=== PATIENT | male | born 1965 | race Caucasian/White ===

== ENCOUNTER 2016-12-21 15:47 | Inpatient (IN) | payer OTHER ==
[2016-12-21 17:11] VITALS: BMI 28.2
--- NOTE | 2016-12-21 18:36 | HP ---
Admission ROS [facility] - [facility] Chief Complaint: I WANT TO GO TO REHAB PATIENT REPORTS COMPLETED DETOX TODAY FROM [facility]" "WHOLE PACKAGE WAS FAXED TO [facility], NEGATIVE CHEST XRAY REPORT INCLUDED LEAD RUBY ON RAILS DEVELOPER UNABLE TO LOCATED "PACKAGE" Allergies/Adverse Reactions: Allergies Allergy/AdvReac Type Severity Reaction Status Date / Time No Known Allergies Allergy Verified 12/21/16 17:10 History of Present Illness: 51 YEARS OLD MALE WITH LONG HISTORY OF ALCOHOL COCAINE DEPENDENCE, DENIES MEDICAL DENIES MENTAL ILLNESS IS ADMITTED TO REHAB Exam Limitations: No Limitations - Ebola screening Have you traveled outside of the country in the last 21 days: No Have you had contact with anyone from an Ebola affected area: No Have you been sick,other than usual withdrawal symptoms: No Do you have a fever: No - Review of Systems Constitutional: Weight Stable EENT: reports: No Symptoms Reported Respiratory: reports: No Symptoms reported Cardiac: reports: No Symptoms Reported GI: reports: No Symptoms Reported : reports: No Symptoms Reported Musculoskeletal: reports: No Symptoms Reported Integumentary: reports: No Symptoms Reported Neuro: reports: No Symptoms reported Endocrine: reports: No Symptoms Reported Hematology: reports: No Symptoms Reported Psychiatric: reports: Judgement Intact, Mood/Affect Appropiate, Orientated x3 Other Systems: Reviewed and Negative Patient History - Patient Medical History Hx Anemia: No Hx Asthma: No Hx Chronic Obstructive Pulmonary Disease (COPD): No Hx Cancer: No Hx Cardiac Disorders: No Hx Congestive Heart Failure: No Hx Hypertension: No Hx Hypercholesterolemia: No (BY HISTORY) Hx Pacemaker: No HX Cerebrovascular Accident: No Hx Seizures: No Hx Dementia: No Hx Diabetes: No Hx Gastrointestinal Disorders: No Hx Liver Disease: No Hx Genitourinary Disorders: No Hx Sexually Transmitted Disorders: No Hx Renal Disease (ESRD): No Hx Thyroid Disease: No Hx Human Immunodeficiency Virus (HIV): No Hx Hepatitis C: No Hx Depression: No Hx Suicide Attempt: No Hx Bipolar Disorder: No Hx Schizophrenia: No - Patient Surgical History Past Surgical History: Yes Hx Neurologic Surgery: No Hx Cataract Extraction: No Hx Cardiac Surgery: No Hx Lung Surgery: No Hx Breast Surgery: No Hx Breast Biopsy: No Hx Abdominal Surgery: No Hx Appendectomy: No Hx Cholecystectomy: No Hx Genitourinary Surgery: No Hx Orthopedic Surgery: No Other Surgical History: 2008 right groin hernia Anesthesia Reaction: No (1978 tonsilectomy) - PPD History Previous Implant?: Yes Documented Results: Negative w/o proof Implanted On Prior R Admission?: No Date: 11/20/16 Results: CHEST X RAY NEG PPD to be Administered?: No - Smoking Cessation Smoking history: Never smoked Have you smoked in the past 12 months: No Aproximately how many cigarettes per day: 0 Hx Chewing Tobacco Use: No Initiated information on smoking cessation: No - Substance & Tx. History Hx Alcohol Use: Yes Hx Substance Use: Yes Substance Use Type: Alcohol, Cocaine Hx Substance Use Treatment: Yes - Substances Abused Alcohol Route: Oral Frequency: 3-6 times per week Amount used: / P[place] Age of first use: 14 Date of Last Use: 12/15/16 Cocaine Route: Smoking Frequency: Daily Amount used: 50$ Age of first use: 26 Date of Last Use: 12/15/16 Family Disease History - Family Disease History Family Disease History: Other: Mother (JOSÉ MIGUEL ) Admission Physical Exam [facility] - Vital Signs Vital Signs: Vital Signs - 24 hr 12/21/16 17:09 Temperature 98.2 F Pulse Rate 67 Respiratory 20 Rate Blood Pressure 136/97 - Physical General Appearance: Yes: No Apparent Distress, Nourished, Appropriately Dressed HEENTM: Yes: Hearing grossly Normal, Normal ENT Inspection, Normocephalic, Normal Voice Respiratory: Yes: Chest Non-Tender, Lungs Clear, Normal Breath Sounds, No Respiratory Distress, No Accessory Muscle Use Neck: Yes: Supple, Trachea in good position Breast: Yes: Breasts Symetrical Cardiology: Yes: Regular Rhythm, Regular Rate, S1, S2 Abdominal: Yes: Normal Bowel Sounds, Non Tender, Soft Genitourinary: Yes: Within Normal Limits Back: Yes: Within Normal Limits, Normal Inspection Musculoskeletal: Yes: full range of Motion, Gait Steady Extremities: Yes: Normal Inspection, Normal Range of Motion, Non-Tender Neurological: Yes: Fully Oriented, Alert, Motor Strength 5/5, Normal Mood/Affect , Normal Response Integumentary: Yes: Warm Lymphatic: Yes: Within Normal Limits - Diagnostic (1) Alcohol dependence with uncomplicated withdrawal Current Visit: Yes Status: Acute (2) Cocaine dependence, uncomplicated Current Visit: Yes Status: Chronic Cleared for Admission [facility] - Detox or Rehab [facility] Level of Care: Observation Bed Detox Regimen/Protocol: Not Applicable Claeared for Rehab Admission: Yes [facility] Breath Alcohol Content Breath Alcohol Content: 0 Urine Drug Screen - Results Drug Screen Negative: No Urine Drug Screen Results: BZO-Benzodiazepines
[2016-12-21] MEDS ORDERED: P-EPHED 60MG/TRIPROLIDI 2.5MG TABLET PO PRN (18:44)
[2016-12-21] MEDS ORDERED: guaiFENesin/D-METHORPHAN HB 10 ML UNIT-DOSE CUPS PO PRN (18:44)
[2016-12-21] MEDS ORDERED: hydrOXYzine PAMOATE 50 MG CAPSULE (FP) PO PRN (18:44)
[2016-12-21] MEDS ORDERED: LOPERAMIDE HCL 2 MG CAPSULE PO PRN (18:44)
[2016-12-21] MEDS ORDERED: MAGNESIUM HYDROX 2400MG/30ML ORAL SUSPENSION 30 ML CUP PO PRN (18:44)
[2016-12-21] MEDS ORDERED: MAG HYDROX/AL HYDROX/SIMETH 30 ML UNIT-DOSE CUP PO PRN (18:44)
[2016-12-21] MEDS ORDERED: MAGNESIUM CITRATE 300 ML BOTTLE PO PRN (18:44)
[2016-12-21] MEDS ORDERED: MENTHOL/PHENOL 1 EACH UD MM PRN (18:44)
[2016-12-21] MEDS: THIAMINE HCL 100 MG TABLET (FP) PO SCH (23:28)
--- NOTE | 2016-12-22 06:41 | HP ---
Psychiatrist Admission - Data Date of interview: 12/22/16 Admission source: [facility] Identifying data: This is the second [facility] admission for this 51 years old male Medical History: Significant for Hyperlipidemia, herniated disc from work injury , alcohol-related seizure and surgery for right inguinal hernia repair Psychiatric History: Patient was a realiable historian, however he could not recall date of his psychiatric contacts. Reports that his first psychiaric contact was in an outpatient substance abuse program sometimes in . He said that that psychiatrist diagnosed him with Bipolar Disorder and prescribed him medication. Claims that he did not take that medication. Later on he saw an outpatient psychiatrist who diagnosed him with Bipolar Disorder and prescribed him Depakote and Seroquel. Reports that he saw that psychiatrist little over a year. He denied at first ever been in a psychiatric hospital.However, when confronted with information he provided in a previous admission to rehab in this facility in 2016, he admitted to one short psychiatric admission to [facility]. He said that he went there for the purpose of being admitted to inpt detox, but when he was told there was no bed available, he lied his way to the [facility]. Reports not currently involved in treatment as well as taking medication. He said that he has stopped taking medications a year ago but was prescribed Seroquel for sleep at [facility] where he just completed inpt detox yesterday. He does not want to take medications, not even Seroquel during his stay here. Denies history of previous suicidal attempt Physical/Sexual Abuse/Trauma History: Patient denies history of sexual, physical and verbal abuse. Served 2.5 yeras in and discharged [facility] Additional Comment: Reports history of 5 misdemeanor arrests. Denies being on probation at present Vital Signs: Vital Signs - 24 hr 12/21/16 12/22/16 12/22/16 17:09 00:30 03:30 Temperature 98.2 F Pulse Rate 67 Respiratory 20 20 20 Rate Blood Pressure 136/97 12/22/16 06:36 Temperature 96.3 F L Pulse Rate 52 L Respiratory 16 Rate Blood Pressure 130/87 Allergies/Adverse Reactions: Allergies Allergy/AdvReac Type Severity Reaction Status Date / Time No Known Allergies Allergy Verified 12/21/16 17:10 Date of last physical exam: 12/21/16 Concur with the findings of this exam: Yes - Substance Abuse/Tx History Hx Alcohol Use: Yes Hx Substance Use: Yes Substance Use Type: Alcohol (Started drinking alcohol at age 14, consumes half a pint 3-6 times weekly. Last drink on 12/15/16), Cocaine (Started smoking crack cocaine at age 26, consumes $50 worth daily. Last smoked on 12/15/16) Hx Substance Use Treatment: Yes (multiple inpt detox & 2 inpt rehab) - Admission Criteria Previous failed treatment: No Poor recovery environment: Yes Comorbidities: Yes Lacks judgement: Yes Mental Status Exam - Mental Status Exam Alert and Oriented to: Time, Place, Person Cognitive Function: Fair Patient Appearance: Well Groomed Mood: Depressed Affect: Appropriate Patient Behavior: Cooperative Speech Pattern: Clear, Pressured (mildly) Voice Loudness: Normal Thought Process: Intact Thought Disorder: Not Present Hallucinations: Denies Suicidal Ideation: Denies Homicidal Ideation: Denies Insight/Judgement: Fair Sleep: Poorly Appetite: Good Muscle strength/Tone: Normal Gait/Station: Normal Psychiatric Findings - Problem List ([place] 1, 2,3) (1) Alcohol dependence with uncomplicated withdrawal Current Visit: Yes Status: Acute (2) Cocaine dependence, uncomplicated Current Visit: Yes Status: Chronic (3) Bipolar disorder Current Visit: Yes Status: Acute (4) Hyperlipidemia Current Visit: No Status: Chronic Qualifiers: Hyperlipidemia type: Pure hypercholesterolemia Comment: lipitor 20 mg - Initial Treatment Plan Initial Treatment Plan: Monitor progress
[2016-12-22] MEDS: PRENATAL VITAMINS W/ FOLIC ACID TABLET (FP) PO SCH (09:50)
[2016-12-22 10:58] LABS: ALBUMIN 3.8 g/dl (3.4-5.0); ALK PHOS 80 U/L (45-117); ANION GAP 8 (8-16); BILIRUBIN,TOTAL 0.5 mg/dL (0.2-1.0); CALCIUM 9.4 mg/dL (8.5-10.1); CO2 32 mmol/L (21-32); COCKROFT - GAULT 107.21; CREATININE 1.1 mg/dL (0.7-1.3); GLUCOSE,RANDOM 98 mg/dL (74-106); TOT PROT 7.5 g/dl (6.4-8.2)
[2016-12-22 10:59] LABS: MCH 30.2 pg (25.7-33.7); MCHC 34.3 g/dl (32.0-35.9); MEAN CELL VOLUME 87.9 fl (80-96); MEAN PLT VOLUME 7.8 fl (7.5-11.1); PLATELET COUNT 283 K/MM3 (134-434); WHITE BLOOD COUNT 6.4 K/mm3 (4.0-10.0)
[2016-12-22 11:47] LABS: URINE APPEARANCE CLEAR; URINE BILIRUBIN NEGATIVE (NEGATIVE); URINE BLOOD NEGATIVE (NEGATIVE); URINE COLOR LTYELLOW; URINE GLUCOSE (UA) NEGATIVE (NEGATIVE); URINE KETONE NEGATIVE (NEGATIVE); URINE LEUK ESTERASE NEGATIVE (NEGATIVE); URINE NITRITE NEGATIVE (NEGATIVE); URINE PROTEIN NEGATIVE (NEGATIVE); URINE UROBILINOGEN NEGATIVE E.U./dl (0.2-1.0)
[2016-12-22 12:07] LABS: HIV 1 & 2 AB NEGATIVE; HIV 1 AGp24 NEGATIVE
[2016-12-22] MEDS ORDERED: COLLOIDAL OATMEAL 1 BAR EACH TP PRN (12:48)
--- NOTE | 2016-12-22 13:11 | EKG ---
Test Reason : Blood Pressure : / mmHG Vent. Rate : 065 BPM Atrial Rate : 065 BPM P-R Int : 170 ms QRS Dur : 084 ms QT Int : 408 ms P-R-T Axes : 048 015 033 degrees QTc Int : 424 ms NORMAL SINUS RHYTHM NORMAL ECG NO PREVIOUS ECGS AVAILABLE Confirmed by TIERRA BILLINGSLEY, ADOLFO ([id number]) on 12/22/2016 1:11:20 PM Referred By: Matt Pulido Confirmed By:ADOLFO MAYORGA MD
[2016-12-22 18:14] LABS: SGPT/ALT 31 U/L (12-78)
[2016-12-22 18:15] LABS: SGOT/AST 22 U/L (15-37)
[2016-12-22] MEDS: IBUPROFEN 400 MG TABLET (FP) PO PRN (20:25)
[2016-12-22] MEDS: diphenhydrAMINE HCL 50 MG CAPSULE PO PRN (21:07)
[2016-12-22] MEDS: THIAMINE HCL 100 MG TABLET (FP) PO SCH (21:07)
[2016-12-22] MEDS: CLOTRIMAZOLE 1%TOPICAL SOLUTION 30 ML BOTTLE TP SCH (21:08)
[2016-12-22] MEDS ORDERED: PT OWN MED DRAWER 7, Y5N ONE (21:09)
[2016-12-23] MEDS ORDERED: PT OWN MED DRAWER 7, Y5N ONE ×3 (08:36→21:38)
[2016-12-23] MEDS: PRENATAL VITAMINS W/ FOLIC ACID TABLET (FP) PO SCH (09:43)
[2016-12-23] MEDS: CLOTRIMAZOLE 1%TOPICAL SOLUTION 30 ML BOTTLE TP SCH ×2 (09:45→21:38)
[2016-12-23] MEDS: ACETAMINOPHEN 325 MG TABLET (FP) PO PRN (18:00)
[2016-12-23] MEDS: diphenhydrAMINE HCL 50 MG CAPSULE PO PRN (21:37)
[2016-12-23] MEDS: IBUPROFEN 400 MG TABLET (FP) PO PRN (21:37)
[2016-12-23] MEDS: THIAMINE HCL 100 MG TABLET (FP) PO SCH (21:38)
[2016-12-24] MEDS: PRENATAL VITAMINS W/ FOLIC ACID TABLET (FP) PO SCH (09:46)
[2016-12-24] MEDS: CLOTRIMAZOLE 1%TOPICAL SOLUTION 30 ML BOTTLE TP SCH ×2 (09:46→21:12)
[2016-12-24] MEDS: ACETAMINOPHEN 325 MG TABLET (FP) PO PRN (11:52)
[2016-12-24] MEDS: diphenhydrAMINE HCL 50 MG CAPSULE PO PRN (21:11)
[2016-12-24] MEDS: IBUPROFEN 400 MG TABLET (FP) PO PRN (21:11)
[2016-12-24] MEDS: THIAMINE HCL 100 MG TABLET (FP) PO SCH (21:11)
[2016-12-25] MEDS ORDERED: PT OWN MED DRAWER 7, Y5N ONE ×2 (08:27→21:35)
[2016-12-25] MEDS: CLOTRIMAZOLE 1%TOPICAL SOLUTION 30 ML BOTTLE TP SCH ×2 (09:44→21:26)
[2016-12-25] MEDS: PRENATAL VITAMINS W/ FOLIC ACID TABLET (FP) PO SCH (09:44)
[2016-12-25] MEDS: THIAMINE HCL 100 MG TABLET (FP) PO SCH (21:36)
[2016-12-25] MEDS: diphenhydrAMINE HCL 50 MG CAPSULE PO PRN (21:36)
[2016-12-26] MEDS ORDERED: PT OWN MED DRAWER 7, Y5N ONE ×3 (08:23→21:22)
[2016-12-26] MEDS: PRENATAL VITAMINS W/ FOLIC ACID TABLET (FP) PO SCH (09:26)
[2016-12-26] MEDS: CLOTRIMAZOLE 1%TOPICAL SOLUTION 30 ML BOTTLE TP SCH ×2 (09:26→21:22)
[2016-12-26] MEDS: diphenhydrAMINE HCL 50 MG CAPSULE PO PRN (21:20)
[2016-12-26] MEDS: THIAMINE HCL 100 MG TABLET (FP) PO SCH (21:20)
[2016-12-26] MEDS: IBUPROFEN 400 MG TABLET (FP) PO PRN (21:21)
[2016-12-27] MEDS: CLOTRIMAZOLE 1%TOPICAL SOLUTION 30 ML BOTTLE TP SCH ×2 (09:45→21:10)
[2016-12-27] MEDS: PRENATAL VITAMINS W/ FOLIC ACID TABLET (FP) PO SCH (09:45)
--- NOTE | 2016-12-27 14:47 | PN ---
Psychiatric Progress Note Vital Signs: Vital Signs Period Temp Pulse Resp BP Sys/Palmer Pulse Ox Last 24 Hr 97.5 F 57 16-18 124/78 Date of Session: 12/27/16 Chief Complaint:: Discharge Note HPI: Patient addressing Alcohol and Cocaine Dependence comorbid with Bipolar Disorder ROS: Hyperlipidemia and Herniated disc Current Medications: Active Medications Generic Name Dose Route Start Last Admin Trade Name Freq PRN Reason Stop Dose Admin Acetaminophen 650 mg 12/21/16 18:44 12/24/16 11:52 Tylenol - PO 650 mg Q4H PRN Administration PAIN Al Hydroxide/Mg Hydroxide 30 ml 12/21/16 18:44 Mylanta Oral Suspension - PO Q6H PRN DYSPEPSIA Clotrimazole 1 applic 12/22/16 22:00 12/27/16 09:45 Lotrimin 1% Solution - TP Not Given BID BRI Colloidal Oatmeal 1 applic 12/22/16 12:48 12/22/16 17:23 Aveeno Soap - TP 1 applic DAILY PRN Administration HYGEINE Diphenhydramine HCl 50 mg 12/21/16 18:44 12/26/16 21:20 Benadryl - PO 50 mg HSMR1 PRN Administration INSOMNIA Eucalyptus/Menthol/Phenol/Sorbitol 1 each 12/21/16 18:44 Cepastat Lozenge - MM Q4H PRN SORE THROAT Guaifenesin 10 ml 12/21/16 18:44 Robitussin Dm - PO Q6H PRN COUGH Hydroxyzine Pamoate 50 mg 12/21/16 18:44 Vistaril - PO Q4H PRN AGITATION Ibuprofen 400 mg 12/21/16 18:44 12/26/16 21:21 Motrin - PO 400 mg Q6H PRN Administration SEVERE PAIN Loperamide HCl 4 mg 12/21/16 18:44 Imodium - PO Q6H PRN DIARRHEA Magnesium Citrate 300 ml 12/21/16 18:44 Citroma - PO Q48H PRN CONSTIPATION Magnesium Hydroxide 30 ml 12/21/16 18:44 Milk Of Magnesia - PO DAILY PRN CONSTIPATION Multivit/Folic Acid/Iron 1 tab 12/22/16 10:00 12/27/16 09:45 Vitamins (Sjr) - PO 1 tab DAILY BRI Administration Pseudoephedrine/Triprolidine 1 combo 12/21/16 18:44 Actifed - PO TID PRN NASAL CONGESTION Thiamine HCl 100 mg 12/21/16 22:00 12/26/16 21:20 Vitamin B1 - PO 100 mg HS BRI Administration Current Side Effect: No Lab tests ordered: Yes Lab tests reviewed: Yes Provider note:: Patient will complete this program on 12/28/16. He has parially met his treatment goals and will contniue to address his issues in outpatient treatment at [facility]. 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 He is stable for discharge on 12/28/16 Total face to face time:: 35 Mental Status Exam - Mental Status Exam Alert and Oriented to: Time, Place, Person Cognitive Function: Fair Patient Appearance: Well Groomed Mood: Hopeful, Euthymic Affect: Appropriate Patient Behavior: Cooperative Speech Pattern: Clear Voice Loudness: Normal Thought Process: Intact Thought Disorder: Not Present Hallucinations: Denies Suicidal Ideation: Denies Homicidal Ideation: Denies Insight/Judgement: Fair Sleep: Fair Appetite: Good Muscle strength/Tone: Normal Gait/Station: Normal Psychiatric Treatment Plan - Problem List (1) Alcohol dependence with uncomplicated withdrawal Current Visit: Yes (2) Cocaine dependence, uncomplicated Current Visit: Yes (3) Bipolar disorder Current Visit: Yes (4) Hyperlipidemia Current Visit: No Qualifiers: Hyperlipidemia type: Pure hypercholesterolemia Comment: lipitor 20 mg Initial treatment plan: Patient will be discharged tomorrow and referred to [facility] for outpatient treatment
[2016-12-27] MEDS: diphenhydrAMINE HCL 50 MG CAPSULE PO PRN (21:09)
[2016-12-27] MEDS: THIAMINE HCL 100 MG TABLET (FP) PO SCH (21:09)
[2016-12-28 06:31] VITALS: BP 130/92; PULSE 58; TEMP 97.4
[2016-12-28] MEDS ORDERED: PT OWN MED DRAWER 7, Y5N ONE (08:31)
== END 2016-12-28 08:30 | disposition home or self-care (01) | DRG 772 ==
LOC: YASAS 15:47 → Y3W 18:29
PROVIDERS: ADMIT Psychiatry & Neurology Psychiatry; ATTEND Psychiatry & Neurology Psychiatry
PROC: HZ42ZZZ Group Counseling for Substance Abuse Treatment, Cognitive-Behavioral (ICD-10-PCS; principal; 2016-12-28)
DX: F10.230 Alcohol dependence with withdrawal, uncomplicated (principal); F14.20 Cocaine dependence, uncomplicated; F31.9 Bipolar disorder, unspecified; E78.00 Pure hypercholesterolemia, unspecified; E78.5 Hyperlipidemia, unspecified
CPT/HCPCS: 36415; 80053; 81003; 85027; 86593; 87389; 93005; 93010

== ENCOUNTER 2024-03-10 15:46 | Inpatient (IN) | payer OTHER ==
[2024-03-10 18:30] VITALS: BMI 27.3
[2024-03-10] MEDS ORDERED: BENZONATATE 200 MG CAPSULE PO PRN (19:28)
[2024-03-10] MEDS ORDERED: hydrOXYzine PAMOATE 25 MG CAPSULE (FP) PO PRN (19:28)
[2024-03-10] MEDS ORDERED: guaiFENesin 600 MG TABLET.ER (FP) PO PRN (19:28)
[2024-03-10] MEDS ORDERED: ACETAMINOPHEN 325 MG TABLET (FP) PO PRN (19:28)
[2024-03-10] MEDS ORDERED: METHOCARBAMOL 500 MG TABLET PO PRN (19:28)
[2024-03-10] MEDS ORDERED: IBUPROFEN 400 MG TABLET (FP) PO PRN (19:28)
[2024-03-10] MEDS ORDERED: DICYCLOMINE HCL 10 MG CAPSULE PO PRN (19:28)
[2024-03-11] MEDS: THIAMINE 100 MG TABLET PO SCH (10:30)
[2024-03-11] MEDS: LOPERAMIDE HCL 2 MG CAPSULE PO PRN (10:30)
[2024-03-11] MEDS: PRENATAL VITAMINS W/ FOLIC ACID TABLET (FP) PO SCH (10:30)
[2024-03-11 11:20] LABS: HEMATOCRIT 35.4 % (35.4-49); HEMOGLOBIN 11.4 GM/dL (11.7-16.9); MCH 23.6 pg (25.7-33.7); MCHC 32.2 g/dl (32.0-35.9); MEAN CELL VOLUME 73.3 fl (80-96); MEAN PLT VOLUME 8.1 fl (7.5-11.1); PLATELET COUNT 249 10^3/uL (134-434); RBC 4.82 M/mm3 (4.00-5.60); RDW 17.5 % (11.9-15.9); WHITE BLOOD COUNT 5.2 K/mm3 (4.0-10.0)
[2024-03-11 11:25] LABS: POTASSIUM 4.4 mmol/L (3.5-5.1)
[2024-03-11 11:29] LABS: CALCIUM 8.5 mg/dL (8.5-10.1)
[2024-03-11 11:30] LABS: ALBUMIN 3.1 g/dl (3.4-5.0); BLOOD UREA NITROGEN 10.2 mg/dL (7-18)
[2024-03-11 11:32] LABS: CREATININE 1.1 mg/dL (0.55-1.3)
[2024-03-11 11:35] LABS: BILIRUBIN,TOTAL 0.4 mg/dL (0.2-1)
[2024-03-12 09:00] VITALS: PULSE 60
[2024-03-12 16:40] VITALS: BP 142/94; RESP 18; TEMP 97.7
== END 2024-03-12 18:07 | disposition other institution (70) | DRG 774 ==
LOC: YASAS 15:46 → Y3N 20:06
PROVIDERS: ADMIT Allergy & Immunology; ATTEND Surgery
PROC: HZ2ZZZZ Detoxification Services for Substance Abuse Treatment (ICD-10-PCS; principal; 2024-03-10)
DX: F10.20 Alcohol dependence, uncomplicated (principal); F14.20 Cocaine dependence, uncomplicated; F13.10 Sedative, hypnotic or anxiolytic abuse, uncomplicated
CPT/HCPCS: 36415; 80053; 80305; 80307; 85027; 86780; 87811; 93005; 93010

== ENCOUNTER 2024-03-12 18:20 | Inpatient (IN) | payer OTHER ==
[2024-03-12] MEDS ORDERED: METHOCARBAMOL 500 MG TABLET PO PRN (18:52)
[2024-03-12] MEDS ORDERED: NALOXONE HCL 0.4 MG/ML VIAL IVPUSH PRN (18:52)
[2024-03-12] MEDS ORDERED: MAGNESIUM HYDROX 2400MG/30ML ORAL SUSPENSION 30 ML CUP PO PRN (18:52)
[2024-03-12] MEDS ORDERED: guaiFENesin 600 MG TABLET.ER (FP) PO PRN (18:52)
[2024-03-12] MEDS ORDERED: BENZONATATE 200 MG CAPSULE PO PRN (18:52)
[2024-03-12] MEDS ORDERED: IBUPROFEN 400 MG TABLET (FP) PO PRN (18:52)
[2024-03-12] MEDS ORDERED: ACETAMINOPHEN 325 MG TABLET (FP) PO PRN (18:52)
[2024-03-12] MEDS ORDERED: POLYETHYLENE GLYCOL (HEALTHYLAX) 3350 17 GM PACKET PO PRN (18:52)
[2024-03-12] MEDS ORDERED: MAG HYDROX/AL HYDROX/SIMETH 30 ML UNIT-DOSE CUP PO PRN (18:52)
[2024-03-12] MEDS ORDERED: LOPERAMIDE HCL 2 MG CAPSULE PO PRN (18:52)
[2024-03-12] MEDS ORDERED: BENZOCAINE/MENTHOL (CHLORASEPTIC ) LOZENGE MM PRN (18:52)
[2024-03-12] MEDS ORDERED: NALOXONE (NARCAN) HCL 4 MG/0.1 ML SPRAY NS PRN (18:52)
[2024-03-12] MEDS: THIAMINE 100 MG TABLET PO SCH (21:05)
[2024-03-12] MEDS: MELATONIN 5 MG TABLETS PO SCH (21:06)
[2024-03-13] MEDS: PRENATAL VITAMINS W/ FOLIC ACID TABLET (FP) PO SCH (10:16)
[2024-03-17 06:49] VITALS: TEMP 97.3
[2024-03-18] MEDS: IBUPROFEN 600 MG TABLET (FP) PO PRN (13:34)
[2024-03-19 06:42] VITALS: RESP 18
[2024-03-19 09:43] VITALS: BP 130/80; PULSE 72
== END 2024-03-19 08:56 | disposition home or self-care (01) | DRG 772 ==
LOC: YASAS 18:20 → Y3W 18:21
PROVIDERS: ADMIT Allergy & Immunology; ATTEND Psychiatry & Neurology Pain Medicine
PROC: HZ42ZZZ Group Counseling for Substance Abuse Treatment, Cognitive-Behavioral (ICD-10-PCS; principal; 2024-03-12)
DX: F10.20 Alcohol dependence, uncomplicated (principal); F14.20 Cocaine dependence, uncomplicated; F13.10 Sedative, hypnotic or anxiolytic abuse, uncomplicated; F31.9 Bipolar disorder, unspecified; E78.00 Pure hypercholesterolemia, unspecified